=== PATIENT | female | born 1990 | race African-American/Black ===

== ENCOUNTER 2017-09-04 11:51 | Emergency (ER) | payer OTHER | END 2017-09-04 12:57 | disposition home or self-care (01) | LOC: ERS 11:51 | DX: J20.9 Acute bronchitis, unspecified (principal) | CPT/HCPCS: 99283 ==

== ENCOUNTER 2017-11-18 15:04 | Outpatient (CLI) | payer OTHER ==
[2017-11-18 15:56] LABS: BHCG - Serum Negative (NEGATIVE); Pregs Control Background? CLEAR/WHITE (CLR/WHITE); Pregs Control Bar Appear? YES (CONTROL BAR)
[2017-11-18 16:03] LABS: Anion Gap 9 mmol/L (10-20); BUN (Urea Nitrogen) 9 mg/dL (7.0-18.7); Calc. Creatinine Clearance 0 mL/min (70-130); Carbon Dioxide 24 mmol/L (22-29); Chloride 108 mmol/L (98-107); Estimated GFR-MDRD Greater than 90; Glucose 85 mg/dL (70-105); Sodium 137 mmol/L (136-145)
[2017-11-18 16:38] LABS: Hemoglobin 11.2 g/dL (12.0-16.0); Mean Corpuscular HGB CONC 34.5 g/dL (32.0-36.0); Mean Platelet Volume 9.6 fL (7.4-10.4); Platelet Count 211 thou/uL (130-400); RBC Distribution Width 12.9 % (11.5-14.5); Red Blood Cell (RBC) Count 3.72 mill/uL (4.20-5.40); White Blood Cell (WBC) Count 5.3 thou/uL (4.8-10.8)
[2017-11-18 16:40] LABS: #Basophils 0.1 thou/uL (0.0-0.2); #Eosinphils 0.1 thou/uL (0.0-0.7); #Lymphocytes 1.8 thou/uL (1.20-3.40); #Monocytes 0.4 thou/uL (0.11-0.59); #Neutrophils 2.9 thou/uL (1.40-6.50); %Eosinophils 1.9 % (0.0-10.0); %Lymphocytes 33.5 % (21.0-51.0); %Monocytes 8.2 % (0.0-10.0); %Neutrophils 55.5 % (42.0-75.0); PLT Morphology Comment Appears Adequate; RBC Morphology Normal
== END 2017-11-18 15:05 | disposition home or self-care (01) ==
LOC: LABBT 15:04
PROVIDERS: ATTEND Specialist
DX: Z01.812 Encounter for preprocedural laboratory examination (principal); K42.9 Umbilical hernia without obstruction or gangrene
CPT/HCPCS: 80048; 84703; 85025

== ENCOUNTER 2017-12-03 14:42 | Outpatient (CLI) | payer OTHER ==
[2017-12-03 15:43] LABS: BHCG - Serum Negative (NEGATIVE); Pregs Control Background? CLEAR/WHITE (CLR/WHITE); Pregs Control Bar Appear? YES (CONTROL BAR)
[2017-12-03 15:51] LABS: Hemoglobin 11.1 g/dL (12.0-16.0); Mean Corpuscular HGB CONC 33.9 g/dL (32.0-36.0); Mean Corpuscular Hemoglobin 29.7 pg (27.0-31.0); Mean Corpuscular Volume 87.7 fL (78.0-98.0); Mean Platelet Volume 10.1 fL (7.4-10.4); Platelet Count 208 thou/uL (130-400); Red Blood Cell (RBC) Count 3.73 mill/uL (4.20-5.40); White Blood Cell (WBC) Count 5.5 thou/uL (4.8-10.8)
[2017-12-03 15:56] LABS: Anion Gap 11 mmol/L (10-20); BUN (Urea Nitrogen) 7 mg/dL (7.0-18.7); Calc. Creatinine Clearance 0 mL/min (70-130); Calcium 9.3 mg/dL (7.8-10.44); Carbon Dioxide 23 mmol/L (22-29); Chloride 108 mmol/L (98-107); Estimated GFR-MDRD 86; Glucose 87 mg/dL (70-105); Potassium 4.1 mmol/L (3.5-5.1); Sodium 138 mmol/L (136-145)
== END 2017-12-03 14:43 | disposition home or self-care (01) ==
LOC: LABBT 14:42
PROVIDERS: ATTEND Specialist
DX: Z01.812 Encounter for preprocedural laboratory examination (principal); K42.9 Umbilical hernia without obstruction or gangrene
CPT/HCPCS: 80048; 84703; 85027

== ENCOUNTER 2017-12-18 11:04 | Day surgery (SDC) | payer OTHER ==
[2017-12-03 14:58] VITALS: BMI 24.5
[2017-12-18] MEDS ORDERED: Fentanyl 100 MCG/2 ML VIAL ONE ×2 (12:02→15:41)
[2017-12-18] MEDS ORDERED: Bupivacaine/Epinephrine 0.25% 30 ML VIAL ONE (12:12)
[2017-12-18] MEDS ORDERED: CEFAZOLIN/Water 2 GM/20 ML SYRINGE ONE (12:14)
[2017-12-18] MEDS ORDERED: Ketorolac Tromethamine 30 MG/ML VIAL ONE (12:14)
[2017-12-18] MEDS ORDERED: Lidocaine 1% PF 5 ML VIAL ONE (15:10)
[2017-12-18] MEDS ORDERED: PROPOFOL 200 MG/20 ML VIAL ONE (15:10)
[2017-12-18] MEDS ORDERED: Dexamethasone 20 MG/5 ML VIAL ONE (15:10)
[2017-12-18] MEDS ORDERED: Glycopyrrolate 0.2 MG/ML 5 ML SYRINGE ONE (15:10)
[2017-12-18] MEDS ORDERED: Ondansetron HCl/PF 4 MG/2 ML Vial ONE (15:10)
[2017-12-18] MEDS ORDERED: diphenhydrAMINE 50 MG/ML VIAL ONE (15:31)
[2017-12-18] MEDS ORDERED: HYDROcodone/Acetaminophen 5/325 mg Tablet ONE (17:43)
--- NOTE | 2017-12-21 11:31 | OP ---
DATE OF PROCEDURE: 12/18/2017 PREOPERATIVE DIAGNOSIS: Umbilical hernia, painful. POSTOPERATIVE DIAGNOSIS: Umbilical hernia, painful. OPERATION PERFORMED: Umbilical hernia repair with 4.3 cm mesh patch. SURGEON: uLigi Giang M.D. ANESTHESIA: General with laryngeal mask airway. INDICATIONS: The patient is a 27-year-old black female. She has an easily visible umbilical hernia. This is causing her progressive discomfort. She was taken to the operating room at this time for r epair. DESCRIPTION OF OPERATION: Informed consent was obtained. Patient was taken to the operating room wh ere general anesthesia obtained with the patient in supine position. Abdomen was prepped with Chlora Prep and draped in sterile fashion. Local anesthetic was infiltrated with 0.25% Marcaine with epinep hrine. A curvilinear infraumbilical incision was created and dissection was carried through skin and subcutaneous tissue down to the fascia. The umbilicus was dissected off the underlying hernia sac a nd the fascia. The hernia sac was entered and dissected. There were fatty contents within the herni a sac. These were partially reduced and partially removed. Meticulous hemostasis was maintained. T he hernia defect was debrided to viable fascia circumferentially. Preperitoneal dissection was jorge ed out to clear space for mesh. The mesh patch (4.3 cm) was obtained and passed into the preperitone al space where it was pulled snug against the posterior aspect of the fascia. The four tails of the mesh were each secured to the fascia with interrupted sutures of 0 Prolene. I then placed a final Pr olene suture in the midline of the defect. The umbilicus was secured down to the fascia with 2 interrupted sutures of 3-0 Vicryl. The remainder of the wound was closed in layers with 3-0 and 4-0 Monocryl. Additional local anesthetic was infilt rated during closure. Dermabond was placed to the skin incision. I then placed a compression dressi ng of cotton balls and Tegaderm, aspirating the air from within the cotton balls. There were no comp lications. The patient tolerated the procedure well and was taken to recovery in stable condition.
== END 2017-12-18 18:16 | disposition home or self-care (01) ==
LOC: SDC 11:04
PROVIDERS: ATTEND Specialist
PROC: 0WUF0JZ Supplement Abdominal Wall with Synthetic Substitute, Open Approach (ICD-10-PCS; principal; 2017-12-18)
DX: K42.9 Umbilical hernia without obstruction or gangrene (principal); K59.00 Constipation, unspecified
CPT/HCPCS: 96374; 96375; J0131; J1100; J1200; J1885; J2001; J2405; J2704; J3010

== ENCOUNTER 2018-03-28 10:18 | Emergency (ER) | payer OTHER ==
[2018-03-28 10:55] LABS: Bilirubin Negative (Negative); Blood, Urine Negative (Negative); Clarity CLEAR (Clear); Glucose, Urine (Dipstick) Negative (Negative); Leukocyte Negative (Negative); Nitrite Negative (Negative); Protein, Urine (Dipstick) Negative (Neg-Trace); Specific Gravity, Urine 1.018 (1.002-1.036); pH, Urine 5.5 (5.0-9.0)
[2018-03-28 10:58] LABS: #Lymphocytes 1.2 thou/uL (1.20-3.40); #Monocytes 0.4 thou/uL (0.11-0.59); #Neutrophils 2.6 thou/uL (1.40-6.50); %Basophils 0.3 % (0.0-1.0); %Eosinophils 0.4 % (0.0-10.0); %Lymphocytes 27.8 % (21.0-51.0); %Monocytes 9.1 % (0.0-10.0); %Neutrophils 62.4 % (42.0-75.0); Hemoglobin 12.2 g/dL (12.0-16.0); Mean Corpuscular HGB CONC 33.6 g/dL (32.0-36.0); Mean Corpuscular Hemoglobin 29.8 pg (27.0-31.0); Mean Corpuscular Volume 88.6 fL (78.0-98.0); Mean Platelet Volume 9.6 fL (7.4-10.4); Platelet Count 245 thou/uL (130-400); RBC Distribution Width 13.6 % (11.5-14.5); Red Blood Cell (RBC) Count 4.11 mill/uL (4.20-5.40); White Blood Cell (WBC) Count 4.1 thou/uL (4.8-10.8)
[2018-03-28 11:18] LABS: ALT (SGPT) 19 U/L (8-55); AST (SGOT) 17 U/L (5-34); Albumin 4.3 g/dL (3.5-5.0); Alkaline Phosphatase 75 U/L (40-150); Anion Gap 12 mmol/L (10-20); BUN (Urea Nitrogen) 9 mg/dL (7.0-18.7); Bilirubin, Total 0.6 mg/dL (0.2-1.2); Calc. Creatinine Clearance 0 mL/min (70-130); Calcium 9.1 mg/dL (7.8-10.44); Carbon Dioxide 23 mmol/L (22-29); Chloride 105 mmol/L (98-107); Estimated GFR-MDRD 87; Globulin 3.7 g/dL (2.4-3.5); Glucose 101 mg/dL (70-105); Potassium 3.6 mmol/L (3.5-5.1); Sodium 136 mmol/L (136-145)
[2018-03-28] MEDS ORDERED: Ketorolac Tromethamine 60 MG/2 ML VIAL ONE (11:22)
[2018-03-28] MEDS ORDERED: Dicyclomine 20 MG TAB ONE (11:22)
[2018-03-28] MEDS ORDERED: Ondansetron ODT 4 MG TAB ONE (11:22)
== END 2018-03-28 11:53 | disposition home or self-care (01) ==
LOC: ERS 10:18
DX: K52.9 Noninfective gastroenteritis and colitis, unspecified (principal)
CPT/HCPCS: 36415; 80053; 81003; 85025; 96372; J1885; Q0162

== ENCOUNTER 2018-11-20 12:23 | Emergency (ER) | payer OTHER | END 2018-11-20 14:27 | disposition home or self-care (01) | LOC: ERS 12:23 → EEVIPCON 12:23 → ERS 14:27 | DX: S00.03XA Contusion of scalp, initial encounter (principal); Y04.0XXA Assault by unarmed brawl or fight, initial encounter | CPT/HCPCS: 99283 ==

== ENCOUNTER 2020-12-16 22:13 | Emergency (ER) | payer OTHER ==
[2020-12-17] MEDS ORDERED: Lorazepam 1 MG TAB ONE (00:07)
== END 2020-12-17 07:26 | disposition home or self-care (01) ==
LOC: ERS 22:13
DX: R07.9 Chest pain, unspecified (principal); F12.10 Cannabis abuse, uncomplicated
CPT/HCPCS: 71045; 93005

== ENCOUNTER 2021-01-16 08:35 | Emergency (ER) | payer OTHER, SELFPAY ==
[2021-01-16] MEDS ORDERED: Iopamidol-370 76% 500 ML 1 ML ONE (09:12)
[2021-01-16 09:28] LABS: #Basophils 0.1 thou/uL (0.0-0.2); #Eosinphils 0.1 thou/uL (0.0-0.7); #Lymphocytes 2.3 thou/uL (1.20-3.40); #Monocytes 0.5 thou/uL (0.11-0.59); #Neutrophils 2.2 thou/uL (1.40-6.50); %Basophils 1.7 % (0.0-1.0); %Eosinophils 1.8 % (0.0-10.0); %Lymphocytes 44.7 % (21.0-51.0); %Monocytes 8.7 % (0.0-10.0); %Neutrophils 43.1 % (42.0-75.0); Hemoglobin 10.9 g/dL (12.0-16.0); Mean Corpuscular HGB CONC 33.6 g/dL (32.0-36.0); Mean Corpuscular Hemoglobin 28.7 pg (27.0-31.0); Mean Corpuscular Volume 85.4 fL (78.0-98.0); Mean Platelet Volume 9.9 fL (7.4-10.4); Platelet Count 238 thou/uL (130-400); RBC Distribution Width 13.8 % (11.5-14.5); Red Blood Cell (RBC) Count 3.81 mill/uL (4.20-5.40); White Blood Cell (WBC) Count 5.2 thou/uL (4.8-10.8)
[2021-01-16 09:41] LABS: BHCG - Serum Negative (NEGATIVE); Pregs Control Background? CLEAR/WHITE (CLR/WHITE); Pregs Control Bar Appear? YES (CONTROL BAR)
[2021-01-16] MEDS ORDERED: Ketorolac Tromethamine 30 MG/ML VIAL ONE (11:08)
[2021-01-16 11:22] LABS: ALT (SGPT) 14 U/L (8-55); AST (SGOT) 14 U/L (5-34); Albumin 4.1 g/dL (3.5-5.0); Alkaline Phosphatase 63 U/L (40-110); Anion Gap 11 mmol/L (10-20); BUN (Urea Nitrogen) 10 mg/dL (7.0-18.7); Bilirubin, Total 0.4 mg/dL (0.2-1.2); Calc. Creatinine Clearance 0 mL/min (70-130); Calcium 8.9 mg/dL (7.8-10.44); Carbon Dioxide 22 mmol/L (22-29); Chloride 107 mmol/L (98-107); Globulin 3.3 g/dL (2.4-3.5); Glucose 90 mg/dL (70-105); Lipase 53 U/L (8-78); Potassium 4.1 mmol/L (3.5-5.1); Protein, Total 7.4 g/dL (6.0-8.3); Sodium 136 mmol/L (136-145)
[2021-01-16 11:42] LABS: Bilirubin Negative (Negative); Blood, Urine Trace (Negative); Clarity Clear (Clear); Glucose, Urine (Dipstick) 30 mg/dL (Negative); Ketone, Urine Negative (Negative); Leukocyte Negative Leu/uL (Negative); Nitrite Negative (Negative); Protein, Urine (Dipstick) Negative (Neg-Trace); RBC/HPF 0-3 HPF (0-3); Specific Gravity, Urine 1.007 (1.002-1.036); Urobilinogen Normal mg/dL (Less than 2); WBC/HPF 0-3 HPF (0-3); pH, Urine 6.5 (5.0-9.0)
[2021-01-16 11:43] LABS: Bacteria/HPF Rare-Few HPF (None Seen)
== END 2021-01-16 12:40 | disposition home or self-care (01) ==
LOC: ERS 08:35
DX: N83.201 Unspecified ovarian cyst, right side (principal); R07.9 Chest pain, unspecified; R51.9 Headache, unspecified; Z87.19 Personal history of other diseases of the digestive system
CPT/HCPCS: 36415; 71045; 71275; 74177; 80053; 81003; 81015; 83690; 84484; 84703; 85025; 93005; 96374; J1885; Q9967